=== PATIENT | male | born 1970 | race African-American/Black ===

== ENCOUNTER 2017-02-21 23:39 | Observation (INO) | payer BC ==
[~2017-02-21] VITALS: Ht 175.3 cm; Wt 98.4 kg
--- NOTE | ~2017-02-21 | HC ---
[facility] [place] [address] CONSULTATION Name: GILADAWSON BJ Room #: 215-[facility] Delmis#: [id number] Admission: 02/22/17 Attend Phys: Michael Ervin MD Discharge: Date of : 66 Report #: [id number] THIS REPORT FOR: //name// CC: Don Ervin DATE OF SERVICE: 02/22/2017 INDICATION: Cardiomyopathy. HISTORY OF PRESENT ILLNESS: This is a 46-year-old gentleman presenting with complaints of increasing shortness of breath after starting carvedilol. He also reports some tingling in his . There is no history of chest pains, dizziness, PND, nausea, or diarrhea. He has a history of hypercholesterolemia, managed with low-dose Lipitor. He had a recent cardiac evaluation as an outpatient, found to have severe cardiomyopathy. The nuclear stress test reveals an incomplete infarct in the anterior distribution. He was originally scheduled for a cardiac catheterization. The patient was started on low dose carvedilol due to a blood pressure that was at the lower limits of normal. PAST MEDICAL HISTORY: Hypercholesterolemia, left bundle branch block, asthma, and diagnosed with severe cardiomyopathy in January 2017. ALLERGIES: None. MEDICATIONS: Include Coreg 3.125 mg twice a day, aspirin once a day, and Lipitor 10 mg daily. SOCIAL HISTORY: Denies tobacco use. FAMILY HISTORY: Negative for premature CAD. REVIEW OF SYSTEMS: A full 10-point review of systems was performed. Only the pertinent positives and negatives are discussed in the HPI. PHYSICAL EXAMINATION: VITAL SIGNS: Blood pressure is 110/70, heart rate is 71 beats per minute. GENERAL APPEARANCE: This is a well-developed, well-nourished male, in no acute respiratory distress. HEAD AND EYES: Normocephalic. Sclerae are anicteric. ENT: Oral mucosa moist. NECK: Supple. LUNGS: Clear to auscultation. CARDIAC: Regular rate and rhythm, S1, S2 positive. ABDOMEN: Soft, nontender. Bowel sounds positive. EXTREMITIES: No major joint deformities. No cyanosis. No edema. [facility] [address] [place] [address] CONSULTATION Name: GILADAWSON BJ Room #: 215-P [facility]..#: [id number] Admission: 02/22/17 Attend Phys: Michael Ervin MD Discharge: Date of : 66 Report #: [id number] ECG reveals sinus rhythm, left bundle branch block. LABORATORY VALUES: White count is 6.2, hemoglobin 13.8. Sodium is 140, creatinine is 1.3. ProBNP is 281. Peak troponin 0.08, in the indeterminate range. ASSESSMENT: 1. Weakness/dyspnea after starting Coreg. Appears to be attributed to the beta kristi. The patient is not tolerating the beta kristi, may be aggravating his underlying cardiomyopathy. We will hold on the beta kristi at this time. 2. Cardiomyopathy, newly diagnosed. He appears to be well compensated clinically. We will proceed with a cardiac catheterization during this admission. Probably we will start him on a low dose ARB medication, as long as his blood pressure tolerates. 3. Hypercholesterolemia, continue with low dose statin therapy. 4. Left bundle-branch block, stable with no symptoms of lightheadedness. 5. Asthma, stable from a pulmonary standpoint. Thank you for allowing me to participate in the care of your patient. <ELECTRONICALLY SIGNED> By: Suleiman Hong MD 02/23/17 0903 0820 0951 Suleiman Hong MD /nt
--- NOTE | ~2017-02-21 | CATHLAB ---
[facility] [address] [place] [address] INVASIVE PROCEDURE REPORT Name: DAWSON URIOSTEGUI Room #: 215-P ADM IN M.R.#: [id number] Admission: 02/22/17 Attend Phys: Vikash Ravi Discharge: Date of : 66 Date of Service: 02/22/17 1638 Report #: [id number] THIS REPORT FOR: //name// CC: Don Erivn DATE OF SERVICE: 02/22/2017 CARDIAC CATHETERIZATION INDICATIONS: Cardiomyopathy. Full risks, benefits and alternatives of cardiac catheterization were explained to the patient. All questions were answered. Informed consent was obtained. A Barbeau test was performed on the right radial artery. The right wrist area was prepped and draped in a sterile manner. Lidocaine was given subcutaneously. A 5-Iranian sheath was inserted into the right radial artery via modified Seldinger technique. Nitroglycerin and verapamil was injected through the sheath. 5000 units of heparin was given through a peripheral IV. CORONARY ANATOMY: The left main artery is a large caliber vessel, with no flow-limiting lesions. The LAD is a moderate to large size caliber vessel, travelling down the anterior wall and wrapping around the apex. There were no flow-limiting lesions in the LAD. The first diagonal artery is a moderate size caliber vessel, with no flow-limiting lesions. The left circumflex artery is a moderate to large size caliber vessel, dominant as it supplies a PDA. There were no flow-limiting lesions in the left circumflex artery. There are two moderate sized obtuse marginal arteries, with no flow-limiting lesions. The RCA is a small, nondominant vessel A left ventriculogram was performed revealing severe global LV dysfunction, EF of 30%. The LVEDP is approximately 34 mmHg. There is no gradient across the outflow tract. IMPRESSION: 1. Severe, nonischemic cardiomyopathy. 2. Angiographically normal coronary arteries. [address] [address] [address] [address] INVASIVE PROCEDURE REPORT Name: DAWSON URIOSTEGUI Room #: 215-P [facility] IN M.R.#: [id number] Admission: 02/22/17 Attend Phys: Vikash Ravi Discharge: Date of : 66 Date of Service: 02/22/17 1638 Report #: [id number] 3. Left dominant system. 4. Recommend medical therapy. <ELECTRONICALLY SIGNED> By: Suleiman Hong MD 02/23/17 0902 1638 2117 Suleiman Hong MD /nt
--- NOTE | ~2017-02-21 | EKG ---
[address] [address] [facility] [place] [address] ELECTROCARDIOGRAM REPORT Name: GILADAWSONSUGEY LORENZO Room #: 215-P [facility] M..#: [id number] Admission: 02/22/17 Attend Phys: Shahid Mrea MD Discharge: Date of : 66 Report #: [id number] THIS REPORT FOR: //name// 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 : 1970 Requested By: Jj Heard Order Number: [id number] MD: Holger Archibald Measurements Intervals [place] Rate: 77 P: 54 ME: 160 QRS: 42 QRSD: 157 T: 19 QT: 438 QTc: 496 Interpretive Statements Sinus rhythm Left bundle branch block Compared to ECG 01/08/2017 12:05:38 No significant changes Electronically Signed On 02-22-2017 7:45:43 CDT by Holger Archibald [email or web address] <ELECTRONICALLY SIGNED> By: Holger Archibald MD, [facility] 02/22/17 0745 0005 0005 Holger Archibald MD, FAC /EPI
[~2017-02-21 23:39] MED LIST: LIPITOR10 MG PO; LOVASTATIN 20 M20 MG PO
[2017-02-21 23:44] VITALS: BP 121/81
[2017-02-21] MEDS ORDERED: CARVEDILOL3.125 MG PO (23:50)
[2017-02-21] MEDS ORDERED: ASPIR 8181 MG PO (23:51)
[2017-02-22] VITALS (8 sets, daily range): BP systolic 93–120; BP diastolic 54–76
[2017-02-22 00:31] LABS: ABSOLUTE NEUTROPHILS 2.6 thou/uL (1.4-8.2); EOSINOPHILS 2.9 % (0.0-3.0); HEMATOCRIT 40.4 % (42.0-52.0); HEMOGLOBIN 13.8 gm/dL (14.0-18.0); LYMPHOCYTES 43.9 % (24.0-44.0); MCH 30.6 pg (26.0-34.0); MCHC 34.2 g/dL (28.0-37.0); MCV 89.5 fL (80.0-100.0); MONOCYTES 11.2 % (1.0-8.0); PLATELET COUNT 177 thou/uL (150-400); RBC 4.51 mil/uL (4.50-6.00); RDW 13.2 % (10.5-14.5); WBC 6.2 thou/uL (4.0-11.0)
[2017-02-22 00:32] LABS: MANUAL DIFF NO
[2017-02-22 00:54] LABS: ALBUMIN 3.9 g/dL (3.4-5.0); ALKALINE PHOSPHATASE 59 U/L (46-116); ANION GAP 12 mmol/L (7-16); BUN 12 mg/dL (7-18); CHLORIDE 103 mmol/L (98-107); CK-MB MASS 0.9 ng/mL (<0.5-3.6); CO2 25 mmol/L (21-32); CREATININE 1.3 mg/dL (0.6-1.3); GLUCOSE 101 mg/dL (70-99); MAGNESIUM 1.8 mg/dL (1.8-2.4); NT-PRO BRAIN NAT PEPTIDE 281 pg/mL (<300); POTASSIUM 3.9 mmol/L (3.5-5.1); SGOT 21 U/L (15-37); SGPT 32 U/L (30-65); SODIUM 140 mmol/L (136-145); TOTAL BILIRUBIN 0.5 mg/dL (<0.1-1.0); TOTAL PROTEIN 7.4 g/dL (6.4-8.2); TROPONIN-I < 0.04 ng/mL (<0.04-0.07)
[2017-02-22 00:57] LABS: APTT 24.1 Seconds (24.5-32.8); PROTIME 10.4 Seconds (9.3-11.4)
[2017-02-22 02:13] LABS: CHOLESTEROL 178 mg/dL (<200); HDL CHOLESTEROL 34 mg/dL (>40); LDL CHOLESTEROL 124 mg/dL (<100); TC:HDL 5.2 Ratio (Not establshd); TRIGLYCERIDE 104 mg/dL (<150); VLDL 21 mg/dL (<40)
[2017-02-22 02:15] LABS: SERUM ASSESSMENT Clear
[2017-02-23 03:30] LABS: CALCIUM 8.8 mg/dL (8.5-10.1); CREATININE 1.2 mg/dL (0.7-1.3); POTASSIUM 4.2 mmol/L (3.5-5.1)
[2017-02-23 03:32] LABS: HEMATOCRIT 38.9 % (42.0-52.0); HEMOGLOBIN 13.1 gm/dL (14.0-18.0); MCH 30.3 pg (26.0-34.0); MCHC 33.7 g/dL (28.0-37.0); MCV 89.9 fL (80.0-100.0); RBC 4.33 mil/uL (4.50-6.00); RDW 13.6 % (10.5-14.5); WBC 5.7 thou/uL (4.0-11.0)
[2017-02-23 03:52] VITALS: BP 102/65
[2017-02-23 04:00] VITALS: BP 157/103
[2017-02-23 07:20] VITALS: BP 104/68
[2017-02-23] MEDS ORDERED: BYSTOLIC2.5 MG PO (11:15)
[2017-02-23 11:24] VITALS: BP 104/68
[2017-02-23 18:24] VITALS: BP 104/68
== END 2017-02-23 15:30 | disposition home or self-care (01) ==
LOC: ER 23:39 → 2N 02-22 00:59 → EROBS 02-22 00:59 → 2N 02-22 02:53
PROVIDERS: Emergency Medicine; Internal Medicine Cardiovascular Disease; Nurse Practitioner
DX: R53.1 Weakness (principal); I44.7 Left bundle-branch block, unspecified; R06.00 Dyspnea, unspecified; R11.0 Nausea; J45.909 Unspecified asthma, uncomplicated; R06.02 Shortness of breath; I51.7 Cardiomegaly

== ENCOUNTER 2017-08-11 09:47 | Emergency (ER) | payer BC ==
[~2017-08-11] VITALS: Ht 175.3 cm; Wt 101.2 kg
--- NOTE | ~2017-08-11 | EKG ---
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
[~2017-08-11 09:47] MED LIST changes: +ASPIR 8181 MG PO; +BYSTOLIC2.5 MG PO; +CARVEDILOL3.125 MG PO
[2017-08-11] MEDS ORDERED: COZAAR 25 MG TA25 M1 PO (09:59)
[2017-08-11] MEDS ORDERED: LIPITOR10 MG PO (10:00)
[2017-08-11 10:15] LABS: ABSOLUTE NEUTROPHILS 2.2 thou/uL (1.4-8.2); EOSINOPHILS 2.2 % (0.0-3.0); HEMOGLOBIN 14.2 gm/dL (14.0-18.0); LYMPHOCYTES 44.8 % (24.0-44.0); MCH 31.3 pg (26.0-34.0); MCHC 34.6 g/dL (28.0-37.0); MCV 90.5 fL (80.0-100.0); MONOCYTES 10.8 % (1.0-8.0); PLATELET COUNT 173 thou/uL (150-400); POLYS 41.2 % (36.0-66.0); RBC 4.53 mil/uL (4.50-6.00); RDW 13.2 % (10.5-14.5); WBC 5.3 thou/uL (4.0-11.0)
[2017-08-11 10:16] LABS: MANUAL DIFF NO
[2017-08-11 10:20] LABS: ANION GAP 7 mmol/L (7-16); BUN 14 mg/dL (7-18); CALCIUM 9.2 mg/dL (8.5-10.1); CHLORIDE 106 mmol/L (98-107); CO2 27 mmol/L (21-32); CREATININE 1.3 mg/dL (0.7-1.3); GLUCOSE 119 mg/dL (74-106); SODIUM 140 mmol/L (136-145)
[2017-08-11 10:28] LABS: ALBUMIN 4.2 g/dL (3.4-5.0); ALKALINE PHOSPHATASE 63 U/L (46-116); PROTIME 10.7 Seconds (9.3-11.4); SGOT 18 U/L (15-37); SGPT 26 U/L (30-65); TOTAL BILIRUBIN 0.6 mg/dL (<0.1-1.0); TOTAL PROTEIN 7.6 g/dL (6.4-8.2); TROPONIN-I < 0.04 ng/mL (<0.04-0.07)
[2017-08-11] MEDS ORDERED: PREDNISONE 20 M20 MG PO (11:02)
[2017-08-11] MEDS ORDERED: VENTOLIN HFA 1818 GM INH (11:02)
== END 2017-08-11 11:20 | disposition home or self-care (01) ==
LOC: ER 09:47
PROVIDERS: Emergency Medicine
DX: J45.909 Unspecified asthma, uncomplicated (principal); I44.7 Left bundle-branch block, unspecified; E78.00 Pure hypercholesterolemia, unspecified; F10.99 Alcohol use, unspecified with unspecified alcohol-induced disorder

== ENCOUNTER 2017-09-01 06:33 | Observation (INO) | payer BC ==
[~2017-09-01] VITALS: Ht 175.3 cm; Wt 102.1 kg
[2017-09-01] VITALS (17 sets, daily range): BP systolic 104–118; BP diastolic 65–87
--- NOTE | ~2017-09-01 | P ---
[facility] [place] [address] PROCEDURE REPORT Name: GILADAWSON BJ Room #: 206-P [facility] M..#: [id number] Admission: 09/01/17 Attend Phys: Matias Plascencia MD Discharge: Date of : 66 Report #: [id number] THIS REPORT FOR: //name// CC: Suleiman Plascencia PROCEDURE PERFORMED: Biventricular ICD implantation. PREOPERATIVE DIAGNOSIS: Nonischemic cardiomyopathy. HISTORY OF PRESENT ILLNESS: The patient is a 47-year-old male with history of a nonischemic cardiomyopathy with a left bundle branch block and class 2 heart failure symptoms who is here for Bi-V ICD implantation for primary prevention of sudden cardiac . ANESTHESIA: The patient underwent MAC anesthesia with no anesthesia related complications. PROCEDURE: The patient underwent informed consent where we discussed the details of the procedure including the risks, which include, but not limited to bleeding, infection, vascular damage, cardiac perforation, and pneumothorax. He understood these risks and was willing to proceed. The patient was brought to the EP laboratory in a fasting and sedated state, prepped and draped in sterile fashion, received IV Ancef for antibiotic prophylaxis and underwent a venogram showing patency of the left axillary vein. Next, I injected 20 mL of lidocaine below the level of left clavicle, incision was made, pocket was created over the prepectoral fascia and access was obtained 3 times to the left axillary vein using the extrathoracic approach. Sheaths were positioned using the modified Seldinger technique. Next, under fluoroscopy, a RV lead was positioned in the right ventricular apex. An atrial lead was placed in the right atrial appendage. Both leads were sutured to the prepectoral fascia. Next, I placed a 9-Yoruba short sheath in the left axillary vein and placed a coronary guide sheath into the right atrium and obtained access to the coronary sinus quickly and there was a nice posterolateral branch. I was able to deliver a quadripolar lead into this vessel and had good pacing and sensing thresholds. I then split the sheath and the LV lead dislodged. There was seemed to be a lot of torque build upon the sheath. Therefore, I obtained access a second time to the coronary sinus, at this time it took somewhat longer, but eventually I was in. Again, the sheath was pretty tight within this coronary sinus, but I was able to deliver the lead back into the regional vessel with great pacing thresholds. At this time, the sheath was split again and the lead remained in place, I left a good amount of slack on the LV lead to hopefully prevent dislodgement. This lead was sutured to the prepectoral fascia and the device was connected to leads and the leads were tested and found to be functioning normally. The pocket was irrigated with [facility] [address] [place] [address] PROCEDURE REPORT Name: GILADAWSON BJ Room #: 206-P [facility] Antonio Benites#: [id number] Admission: 09/01/17 Attend Phys: Matias Plascencia MD Discharge: Date of : 66 Report #: [id number] vancomycin and then I closed the pocket in 3 layers using 2-0 for the deep layer, 3-0 for the mid layer and 4-0 for the subcuticular layer and surgical glue was placed to the outer skin layer. The patient awoke neurologically and hemodynamically intact. No complications and no significant bleeding. The implanted device was [employer] model #[id number], serial #[id number]. The atrial lead was a [employer] model #2088TC, 52 cm, serial #[id number]. The RV lead was a [employer] model #7122Q, 58 cm, serial #[id number]. The LV lead that was utilized was a [employer] model #1458Q, 86 cm, serial #[id number]. There was another LV lead that was contaminated before we could utilize it, this was a [employer] model #1458Q, 86 cm, serial #[id number]. The RA lead demonstrated a P-wave of 2.9 millivolts, pacing impedance 780 ohms and pacing threshold 0.5 volts at 0.5 milliseconds. The RV lead demonstrated an R-wave of 11.9 millivolts, pacing impedance of 630 ohms, pacing threshold 1.25 volts at 0.5 milliseconds. The LV lead was programmed to a multipolar pacing configuration because this resulted in QRS. LV 1 one was found to have a threshold of 0.75 volts at 0.5 milliseconds with a pacing impedance of 930 ohms. An LV #2 pacing configuration had a threshold of 1.25 volts at 0.5 milliseconds with a pacing impedance of 790 ohms. The device was programmed to the DDD 60-130 mode. The VT 1 zone was set at 180-220 beats per minute with ATP times 3, ramp times 3 followed by max output shocks. The VF zone was set at greater than 222 beats per minute with ATP while charging followed by max output shocks. CONCLUSIONS: 1. Successful Bi-V ICD implantation. 2. Satisfactory atrial, right ventricular and left ventricular pacing and sensing thresholds. <ELECTRONICALLY SIGNED> By: Matias Plascencia MD 09/02/17 1008 1127 1219 Matias Plascencia MD /nt
--- NOTE | ~2017-09-01 | D ---
[facility] [place] [address] DISCHARGE SUMMARY Name: GILADAWSON BJ Room #: 206-P [facility] M..#: [id number] Admission: 09/01/17 Attend Phys: Matias Plascencia MD Discharge: Date of : 66 Report #: [id number] THIS REPORT FOR: //name// CC: Suleiman Plascencia DISCHARGE DIAGNOSES: 1. Nonischemic cardiomyopathy. 2. Left bundle-branch block. 3. [employer] functional class 2. PROCEDURES PERFORMED: Bi-V ICD implantation. HISTORY OF PRESENT ILLNESS: The patient is a 47-year-old male with a history of a nonischemic cardiomyopathy, left bundle branch block and class 2 heart failure symptoms, who was here for elective implantation of a Bi-V ICD. The procedure was without incident. HOSPITAL COURSE: The patient was monitored overnight. Telemetry had no significant arrhythmias. His chest x-ray the following day showed normal lead position and no pneumothorax. Device interrogation was performed and was within normal limits. Later on in the morning, he did have some phrenic nerve stim, which was coming from the distal pacing poles. This was noted at implant. We had programmed his device to pace in a multipolar configuration from the LV lead. After the diaphragmatic stimulation, we programmed off the distal pacing vector, which resulted in resolution of any phrenic nerve pacing. As such, the patient was deemed stable for discharge home. He was discharged on his same medications that he came in on. Discharge instructions were reviewed and he will follow up for an incision check in 7-10 days. <ELECTRONICALLY SIGNED> By: Matias Plascencia MD 09/02/17 1008 0939 0955 Matias Plascencia MD /nt
[~2017-09-01 06:33] MED LIST changes: +COZAAR 25 MG TA25 M1 PO; +PREDNISONE 20 M20 MG PO; +VENTOLIN HFA 1818 GM INH
[2017-09-01] MEDS ORDERED: THERA M PLUS T1 EAC2 PO (06:53)
[2017-09-01 07:17] LABS: ABSOLUTE NEUTROPHILS 2.3 thou/uL (1.4-8.2); BASOPHILS 0.9 % (0.0-2.0); EOSINOPHILS 3.2 % (0.0-3.0); HEMATOCRIT 40.8 % (42.0-52.0); HEMOGLOBIN 14.1 gm/dL (14.0-18.0); LYMPHOCYTES 41.9 % (24.0-44.0); MCH 30.8 pg (26.0-34.0); MCHC 34.6 g/dL (28.0-37.0); MCV 89.1 fL (80.0-100.0); MONOCYTES 10.1 % (1.0-8.0); PLATELET COUNT 172 thou/uL (150-400); POLYS 43.9 % (36.0-66.0); RBC 4.58 mil/uL (4.50-6.00); RDW 13.3 % (10.5-14.5); WBC 5.2 thou/uL (4.0-11.0)
[2017-09-01 07:22] LABS: MANUAL DIFF NO
[2017-09-01 07:24] LABS: CALCIUM 9.3 mg/dL (8.5-10.1); CREATININE 1.2 mg/dL (0.7-1.3); POTASSIUM 4.1 mmol/L (3.5-5.1)
[2017-09-01 07:30] LABS: ALBUMIN 4.1 g/dL (3.4-5.0); TOTAL BILIRUBIN 0.4 mg/dL (<0.1-1.0); TOTAL PROTEIN 7.1 g/dL (6.4-8.2)
[2017-09-01 07:36] LABS: APTT 25.7 Seconds (24.5-32.8); PROTIME 9.9 Seconds (9.3-11.4)
[2017-09-02] VITALS (7 sets, daily range): BP systolic 101–115; BP diastolic 64–69
== END 2017-09-02 10:42 | disposition home or self-care (01) ==
LOC: CATH 06:33 → OR 06:33 → CATH 08:52 → 2N 09:30 → CATH 12:51 → ENTRNSPT 09-02 10:14 → DELTRNSPT 09-02 10:22 → ENTRNSPT 09-02 10:22 → 2N 09-02 10:42
PROVIDERS: Internal Medicine Cardiovascular Disease
DX: I42.9 Cardiomyopathy, unspecified (principal); I44.7 Left bundle-branch block, unspecified; Z23 Encounter for immunization